=== PATIENT | male | born 1970 | race Two or more races ===

== ENCOUNTER 2024-04-26 21:55 | Emergency (ER) | payer MEDICAID ==
[~2024-04-26] VITALS: Ht 172.7 cm; Wt 81.7 kg
[2024-04-26] MEDS: HYDROcodone-ACET 10/325MG TAB PO ONE (23:11)
[2024-04-27 00:24] VITALS: BP 140/86; PULSE 60; RESP 18; TEMP 98.9; O2SAT 97
== END 2024-04-27 00:26 | disposition home or self-care (01) ==
LOC: EDBD 21:55 → ER 21:55 → EDUNIT# 21:55 → ER 04-27 00:26
DX: M79.18 Myalgia, other site (principal); M25.512 Pain in left shoulder; R07.81 Pleurodynia; E11.9 Type 2 diabetes mellitus without complications; Z86.73 Personal history of transient ischemic attack (TIA), and cerebral infarction without residual deficits; W01.0XXA Fall on same level from slipping, tripping and stumbling without subsequent striking against object, initial encounter; Y93.89 Activity, other specified; Y92.89 Other specified places as the place of occurrence of the external cause; Y99.8 Other external cause status
CPT/HCPCS: 71045